=== PATIENT | female | born 1965 | race Caucasian/White ===

== ENCOUNTER 2020-03-22 23:52 | Emergency (ER) | payer OTHER ==
[~2020-03-22] VITALS: Ht 167.6 cm; Wt 90.9 kg
[~2020-03-22 23:52] MED LIST: ALBU2.5V8 IH; ASPI-889 PO; CRESTOR5 MG PO; ESOM40CA PO; EZET10TA20 PO; FENO160T13 PO; LEVO125T PO; MOME17SP NS; MOME220A5 IH; MONT10TA80 PO; OMEG1CAP2 PO; SITA1TAB11 PO
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
[2020-03-23] MEDS ORDERED: ONDANSETRON PF 4 MG/2 ML VIAL. IVP ONE (00:15)
[2020-03-23] MEDS ORDERED: KETOROLAC 30 MG/ML VIAL. IVP ONE (00:15)
[2020-03-23] MEDS ORDERED: FAMOTIDINE 20 MG/2 ML VIAL IVP ONE (00:15)
[2020-03-23] MEDS ORDERED: IV RINGERS SOLUTION,LACTATED 1,000 ML IV SCH (00:15)
[2020-03-23 00:21] LABS: BASO # 0.1 x10^3/uL (0.0-0.2); BASO % 1 % (0-3); EOS # 0.3 x10^3/uL (0.0-0.7); EOS % 4 % (0-3); HEMATOCRIT 32.6 % (36.0-47.0); LYMPH # 3.1 x10^3/uL (1.0-4.8); LYMPH % 36 % (24-48); MEAN CORPUSCULAR HEMOGLOBIN 22 pg (25-35); MEAN CORPUSCULAR HGB CONC 31 g/dL (31-37); MEAN CORPUSCULAR VOLUME 72 fL (79-100); MONO # 0.7 x10^3/uL (0.0-1.1); MONO % 8 % (0-9); NEUT # 4.4 x10^3uL (1.8-7.7); NEUT % 52 % (31-73); PLATELET COUNT 239 x10^3/uL (140-400); RED BLOOD COUNT 4.52 x10^6/uL (3.50-5.40); RED CELL DISTRIBUTION WIDTH 18.5 % (11.5-14.5); WHITE BLOOD COUNT 8.6 x10^3/uL (4.0-11.0)
--- NOTE | 2020-03-23 00:33 | EKG ---
[address] [address] Test Date: 2020-03-23 Test Time: 00:27:32 Pat Name: ERLINDA MICHELLE Department: Room: Gender: F [employer]: : 1965 Requested By: LOURDES HERRERA Order Number: [id number] Reading MD: Measurements Intervals [place] Rate: 72 P: 43 WV: 162 QRS: 27 QRSD: 78 T: 24 QT: 390 QTc: 429 Interpretive Statements SINUS RHYTHM NORMAL ECG RI6.02 No previous ECG available for comparison
[2020-03-23 00:37] LABS: ALBUMIN 3.9 g/dL (3.4-5.0); CREATININE 0.8 mg/dL (0.6-1.0); DIRECT BILIRUBIN 0.1 mg/dL (0.0-0.2); GFR 74.5; TOTAL BILIRUBIN 0.6 mg/dL (0.2-1.0)
--- NOTE | 2020-03-23 00:39 | RAD ---
INDICATION: Reason: Left sided abdomen and flank pain. Hx: Cholecystectomy / Spl. Instructions: / History: COMPARISON: March 2007 IMPRESSION: 4 views of the chest and abdomen obtained. Cardiac silhouette is not enlarged. There is some calcific atherosclerosis. High density structure seen projected over right side of the cardiac silhouette which is postoperative in nature. Large amount of stool throughout the colon. Air-filled dilation throughout the large bowel is seen which can be from causes such as colonic ileus or very distal obstruction. Electronically signed by: Saul Waters MD (03/23/2020 12:36 AM) [id number]
[2020-03-23 00:46] LABS: ANISOCYTOSIS SLIGHT; HYPOCHROMIA SLIGHT; MICROCYTOSIS SLIGHT; PLT ESTIMATE ADEQUATE (ADEQUATE)
--- NOTE | 2020-03-23 00:50 | RAD ---
INDICATION: Reason: Left sided abdomen and flank pain. Hx: Cholecystectomy / Spl. Instructions: / History: COMPARISON: March 2007 TECHNIQUE: Axial CT images obtained through the abdomen and pelvis without contrast. One or more of the following individualized dose reduction techniques were utilized for this examination: 1. Automated exposure control; 2. Adjustment of the mA and/or kV according to patient size; 3. Use of iterative reconstruction technique. FINDINGS: Postoperative changes to the atrial septum. Linear atelectasis or scarring at lung bases. Moderate scattered atherosclerotic disease. Fat-containing small right inguinal hernia. Post cholecystectomy. The anterior aspect of the liver there is a low-density masslike structure identified measuring up to approximately 28 mm. No peripancreatic fluid collection. Spleen is unremarkable. There is nodular thickening of the left adrenal gland measuring up to about 8 mm in thickness. The patient also had some thickening on prior. There is some distention of the bilateral extrarenal pelvis. 2 mm left-sided distal ureter stone. Urinary bladder is decompressed. Air filled distention of the proximal colon with some stool seen within the colon as well. There is relative decompression more distally at the descending colon. No periappendiceal inflammatory changes. Degenerative changes of the spine. Degenerative changes of the hips. IMPRESSION: * There is a suspected tiny left distal ureter stone. * Dilatation of the ascending and transverse colon with relative decompression more distally. Would correlate with symptoms in the region given this dilatation to ensure there is no pathologic cause such as colonic ileus. * Low-density lesion within the liver which is indeterminate. Nonemergent CT or MRI liver protocol could better assess Electronically signed by: Saul Waters MD (03/23/2020 12:47 AM) [id number]
[2020-03-23 01:44] VITALS: BP 143/75
[2020-03-23 02:04] LABS: CLARITY,URINE HAZY; COLOR,URINE ORANGE
[2020-03-23 02:06] LABS: BARBITURATES NEG (NEG); BENZODIAZEPINES NEG (NEG); CANNABINOIDS NEG (NEG); COCAINE NEG (NEG); METHADONE NEG (NEG); OPIATES NEG (NEG); PHENCYCLIDINE NEG (NEG)
[2020-03-23 02:09] LABS: BACTERIA,URINE 0 /HPF (0-FEW); SQUAMOUS EPITHELIAL CELL,UR FEW /LPF
[2020-03-23] MEDS ORDERED: HYDR-1179 PO (02:14)
[2020-03-23] MEDS ORDERED: ONDA8TAB9 PO (02:14)
[2020-03-23] MEDS ORDERED: CIPR500S2 PO (02:14)
[2020-03-23] MEDS ORDERED: MAGNESIUM HYDROXIDE 2,400 MG/30 ML ORAL.SUSP. PO ONE (02:15)
[2020-03-23] MEDS ORDERED: CIPROFLOXACIN HCL 500 MG TABLET PO ONE (02:15)
[2020-03-23 02:56] LABS: AMPHETAMINE/METHAMPHETAMINE NEG (NEG)
[2020-03-23] MEDS ORDERED: MORPHINE SULFATE 10 MG/ML SYRINGE. SQ ONE (03:00)
[2020-03-23] MEDS ORDERED: TAMS0.4C97 PO (03:02)
[2020-03-23] MEDS ORDERED: TAMSULOSIN 0.4 MG CAP.ER.24H. PO ONE (03:15)
[2020-03-23 19:25] LABS: HDLC 22 mg/dL (40-60); TRIGLYCERIDES 583 mg/dL (0-150); VLDLC 116 mg/dL (0-40)
== END 2020-03-23 03:09 | disposition home or self-care (01) ==
LOC: ER 23:52
DX: N13.2 Hydronephrosis with renal and ureteral calculous obstruction (principal); D50.9 Iron deficiency anemia, unspecified; R79.89 Other specified abnormal findings of blood chemistry; K59.00 Constipation, unspecified; E11.65 Type 2 diabetes mellitus with hyperglycemia; J45.909 Unspecified asthma, uncomplicated; E11.9 Type 2 diabetes mellitus without complications; K21.9 Gastro-esophageal reflux disease without esophagitis; E78.00 Pure hypercholesterolemia, unspecified; Z87.442 Personal history of urinary calculi; Z90.49 Acquired absence of other specified parts of digestive tract; Z90.710 Acquired absence of both cervix and uterus; Z98.890 Other specified postprocedural states; Z87.891 Personal history of nicotine dependence; Z88.1 Allergy status to other antibiotic agents
CPT/HCPCS: 36415; 74022; 74176; 80048; 80061; 80076; 80307; 81001; 82150; 82550; 83690; 84484; 85025; 85045; 85610; 85730; 86705; 86709; 86803; 87086; 87340; 93005; 96361; 96372; 96374; 96375; 99285; J1885; J2270; J2405; J3490; J7120